=== PATIENT | male | born 1960 | race Caucasian/White ===

== ENCOUNTER → 2020-08-27 | Outpatient (CLI) | payer OTHER | LOC: SJCVCIMAG 15:46 | PROVIDERS: ATTEND Internal Medicine Cardiovascular Disease | DX: R10.9 Unspecified abdominal pain (principal); Z90.49 Acquired absence of other specified parts of digestive tract ==

== ENCOUNTER → 2020-09-17 | Outpatient (CLI) | payer OTHER | LOC: SJCVCIMAG 06:23 | PROVIDERS: ATTEND Internal Medicine Cardiovascular Disease | DX: I25.10 Atherosclerotic heart disease of native coronary artery without angina pectoris (principal); R06.00 Dyspnea, unspecified; E78.5 Hyperlipidemia, unspecified; Z82.49 Family history of ischemic heart disease and other diseases of the circulatory system ==